=== PATIENT | male | born 1965 | race Caucasian/White ===

== ENCOUNTER 2023-08-15 12:57 | Observation (INO) | payer BC, OTHER, SELFPAY ==
[2023-08-15] MEDS ORDERED: Aspirin Chewable 81 MG TAB ONE (13:22)
[2023-08-15] MEDS ORDERED: Nitroglycerin 0.4 MG TAB 1 EACH ONE (13:22)
[2023-08-15 13:27] LABS: #Basophils 0.1 10x3/uL (0.0-0.2); #Eosinphils 0.1 10x3/uL (0.0-0.5); #Neutrophils 5.3 10x3/uL (1.5-8.4); %Basophils 0.8 % (0.0-2.0); %Eosinophils 1.5 % (0.0-6.0); %Lymphocytes 26.9 % (18.0-47.0); %Monocytes 11.2 % (0.0-10.0); %Neutrophils 59.2 % (40.0-75.0); Hematocrit 44.1 % (38.8-50.0); Hemoglobin 15.4 g/dL (13.5-17.5); Mean Corpuscular HGB CONC 34.9 g/dL (32.0-36.0); Mean Corpuscular Hemoglobin 31.4 pg (27.0-33.0); Mean Corpuscular Volume 89.8 fl (81.2-95.1); Mean Platelet Volume 8.4 fl (7.4-10.4); Platelet Count 450 10x3/uL (150-450); Red Blood Cell (RBC) Count 4.91 10x6/uL (4.32-5.72)
[2023-08-15 13:39] LABS: ALT (SGPT) 21 U/L (8-55); AST (SGOT) 17 U/L (5-34); Albumin 4.5 g/dL (3.5-5.0); Alkaline Phosphatase 85 U/L (40-110); Anion Gap 19 mmol/L (10-20); BUN (Urea Nitrogen) 14 mg/dL (8.4-25.7); Bilirubin, Total 0.8 mg/dL (0.2-1.2); Calc. Creatinine Clearance 0 mL/min (70-130); Calcium 9.3 mg/dL (7.8-10.44); Carbon Dioxide 18 mmol/L (22-29); Chloride 108 mmol/L (98-107); Estimated GFR 86; Globulin 2.5 g/dL (2.4-3.5); Glucose 110 mg/dL (70-105); Potassium 4.2 mmol/L (3.5-5.1); Sodium 141 mmol/L (136-145)
[2023-08-15 13:45] LABS: Troponin I 0.036 ng/mL (< 0.028)
[2023-08-15] MEDS ORDERED: Enoxaparin 100 MG (1 mL) SYRINGE ONE (14:07)
[2023-08-15] MEDS ORDERED: Nitroglycerin 2% Ointment 1 INCH/1 GM Packet ONE (14:17)
[2023-08-15] MEDS ORDERED: Nitroglycerin 0.4 MG TAB (25 Tab Bottle) SL PRN (15:41)
[2023-08-15] MEDS ORDERED: Ondansetron ODT 4 MG TAB PO PRN (15:44)
[2023-08-15] MEDS ORDERED: Ondansetron PF 4 MG/2 ML Vial IVP PRN (15:44)
[2023-08-15] MEDS ORDERED: Acetaminophen 325 MG TAB PO PRN (15:44)
[2023-08-15 16:18] LABS: Troponin I Less than 0.010 ng/mL (< 0.028)
[2023-08-15 19:49] LABS: Troponin I Less than 0.010 ng/mL (< 0.028)
[2023-08-15] MEDS ORDERED: Atorvastatin Calcium 40 MG TAB ONE (21:08)
[2023-08-15] MEDS: Atorvastatin Calcium 40 MG TAB PO SCH (21:10)
[2023-08-16 04:35] LABS: #Basophils 0.1 10x3/uL (0.0-0.2); #Eosinphils 0.2 10x3/uL (0.0-0.5); #Monocytes 1.1 10x3/uL (0.0-1.1); #Neutrophils 6.5 10x3/uL (1.5-8.4); %Basophils 0.8 % (0.0-2.0); %Eosinophils 2.2 % (0.0-6.0); %Lymphocytes 23.4 % (18.0-47.0); %Monocytes 10.5 % (0.0-10.0); %Neutrophils 62.7 % (40.0-75.0); Hematocrit 40.5 % (38.8-50.0); Hemoglobin 13.9 g/dL (13.5-17.5); Mean Corpuscular HGB CONC 34.3 g/dL (32.0-36.0); Mean Corpuscular Hemoglobin 30.9 pg (27.0-33.0); Mean Platelet Volume 8.4 fl (7.4-10.4); Platelet Count 377 10x3/uL (150-450); RBC Distribution Width 13.1 % (11.5-14.5); White Blood Cell (WBC) Count 10.3 10x3/uL (3.5-10.5)
[2023-08-16 04:50] LABS: Anion Gap 12 mmol/L (10-20); BUN (Urea Nitrogen) 16 mg/dL (8.4-25.7); Calc. Creatinine Clearance 0 mL/min (70-130); Calcium 8.5 mg/dL (7.8-10.44); Carbon Dioxide 24 mmol/L (22-29); Chloride 107 mmol/L (98-107); Cholesterol 149 mg/dl (< 200 Desired); Estimated GFR 93; Glucose 103 mg/dL (70-105); HDL Cholesterol 37 mg/dL (>60 Neg Risk); LDL Cholesterol, Calculated 78 mg/dL; Potassium 3.8 mmol/L (3.5-5.1); Sodium 139 mmol/L (136-145); Triglycerides 172 mg/dL (Less than 150)
[2023-08-16] MEDS: Nitroglycerin 2% Ointment 1 INCH/1 GM Packet TOP SCH (06:14)
[2023-08-16] MEDS ORDERED: Aspirin Chewable 81 MG TAB ONE (07:39)
[2023-08-16] MEDS ORDERED: Nitroglycerin 2% Ointment 1 INCH/1 GM Packet ONE (07:39)
[2023-08-16] MEDS ORDERED: Atorvastatin Calcium 40 MG TAB ONE (07:43)
[2023-08-16] MEDS: Aspirin Chewable 81 MG TAB PO SCH (08:13)
[2023-08-16] MEDS: Atorvastatin Calcium 40 MG TAB PO SCH (08:13)
[2023-08-16 08:30] VITALS: TEMP 98.2
[2023-08-16 12:57] VITALS: BP 147/92
== END 2023-08-16 13:10 | disposition home or self-care (01) ==
LOC: CSHERS 12:57 → CSHERHOLD 13:00
PROVIDERS: ADMIT Family Medicine; ATTEND Family Medicine
DX: R07.9 Chest pain, unspecified (principal); I10 Essential (primary) hypertension; E78.5 Hyperlipidemia, unspecified; Z87.891 Personal history of nicotine dependence
CPT/HCPCS: 36415; 71045; 80048; 80053; 80061; 83735; 83880; 84443; 84484; 85025; 85379; 93005; 93010; 93306; J1650